=== PATIENT | male | born 1940 | race Caucasian/White ===

== ENCOUNTER 2017-11-19 06:39 | Day surgery (SDC) | payer MEDICARE, BC ==
[~2017-11-19] VITALS: Ht 170.2 cm; Wt 66.5 kg
[~2017-11-19 06:39] MED LIST: AMLO5; ASPI325; ATOR40TA; CEPH500 PO; CHOL10002; CIPR500 PO; CLOP75; CLOT10 SS; Ceftin500 MG PO; GLYB5; INSULANPEN; LISI20; METO25ER; METO5A; Novolog Fl100 UNIT/1; PIOG30; TRAZ50; VENL150ER
== END 2017-11-19 08:55 | disposition home or self-care (01) ==
LOC: ORSCSDS 06:39
PROVIDERS: Ophthalmology
PROC: 08RJ3JZ Replacement of Right Lens with Synthetic Substitute, Percutaneous Approach (ICD-10-PCS; principal; 2017-11-19 08:30)
DX: H25.11 Age-related nuclear cataract, right eye (principal); E11.36 Type 2 diabetes mellitus with diabetic cataract; I35.0 Nonrheumatic aortic (valve) stenosis; I34.0 Nonrheumatic mitral (valve) insufficiency; F43.10 Post-traumatic stress disorder, unspecified; I73.9 Peripheral vascular disease, unspecified; I10 Essential (primary) hypertension; I25.10 Atherosclerotic heart disease of native coronary artery without angina pectoris; Z79.01 Long term (current) use of anticoagulants; Z79.899 Other long term (current) drug therapy
CPT/HCPCS: 82947; J2001; J2250; J3301; J7120; V2632

== ENCOUNTER 2017-12-03 06:53 | Day surgery (SDC) | payer MEDICARE, BC ==
[~2017-12-03] VITALS: Ht 170.2 cm; Wt 66.9 kg
== END 2017-12-03 09:04 | disposition home or self-care (01) ==
LOC: ORSCSDS 06:53
PROVIDERS: Ophthalmology
PROC: 08RK3JZ Replacement of Left Lens with Synthetic Substitute, Percutaneous Approach (ICD-10-PCS; principal; 2017-12-03 08:30)
DX: H25.12 Age-related nuclear cataract, left eye (principal); I10 Essential (primary) hypertension; Z95.0 Presence of cardiac pacemaker; E11.36 Type 2 diabetes mellitus with diabetic cataract; E78.5 Hyperlipidemia, unspecified; F32.9 Major depressive disorder, single episode, unspecified; F43.10 Post-traumatic stress disorder, unspecified; Z79.01 Long term (current) use of anticoagulants; Z79.4 Long term (current) use of insulin; Z79.899 Other long term (current) drug therapy
CPT/HCPCS: 82947; J2001; J2250; J3010; J3301; J7040; V2632

== ENCOUNTER 2018-04-22 07:39 | Day surgery (SDC) | payer MEDICARE, BC ==
[~2018-04-22] VITALS: Ht 170.2 cm; Wt 149.0 kg
[~2018-04-22 07:39] MED LIST changes: +ASPI81CH PO; -CHOL10002; +CHOL10002 PO; +COMPLETE MULTI1 EAC1 PO; +Coq-10100 MG PO; +GABA600 PO; -INSULANPEN; +INSULANPEN SC; +LOSARTAN-HCTZ1 EAC1 PO; +METF500C PO; +METO25ER PO; +TRAZ50 PO; -VENL150ER; +VENL150ER PO
--- NOTE | 2018-04-22 11:35 | NUR ---
PT HAS HAD UNCOMPLICATED RECOVERY COURSE. AWAITING EKG. FAMILY AT BEDSIDE. CBG 146. NO C/O PAIN OR DISCOMFORT.
--- NOTE | 2018-04-22 12:35 | NUR ---
ANCEF 1 GRAM IVPB STARTED PER ORDERS
--- NOTE | 2018-04-22 12:58 | NUR ---
PT RESTING COMFORTABLY IN CHAIR. IV ANTIBX INFUSING PER ORDER. AT CHAIRSIDE AWAITING PT DISCHARGE. PT HAS NO C/O PAIN OR DISCOMFORT. NO BLEEDING NOTED TO INCISION SITE.
--- NOTE | 2018-04-22 13:13 | NUR ---
REVIEWED DISCHARGE INSTRUCTIONS WITH PATIENT AND - BOTH OF WHOM VERBALIZED UNDERSTANDING OF ALL INSTRUCTIONS GIVEN. PT STOOD AT CHAIRSIDE - STEADY ON FEET. DRESSED SELF WITH MINIMAL ASSIST FROM .
--- NOTE | 2018-04-22 13:14 | NUR ---
PT MEDICATED WITH TYLENOL #3 FOR 7/10 LEFT UPPER CHEST INCISION DISCOMFORT. PRESSURE DRESSING REMOVED FROM DEVICE CHANGE OUT. CLEAR TEGADERM INTACT. SITE STABLE. PT GETTING DRESSED AND READY FOR DISPO. AUBREE NOEL RN GOING OVER DISCHARGE PAPERWORK. ANCEF INFUSION COMPLETE.
--- NOTE | 2018-04-22 13:19 | NUR ---
IV D/C TIP INTACT, DRESSING APPLIED. PT AMBULATED OUT OF UNIT, STEADY ON FEET.
== END 2018-04-22 13:20 | disposition home or self-care (01) ==
LOC: MHTC 07:39
DX: Z45.010 Encounter for checking and testing of cardiac pacemaker pulse generator [battery] (principal); I25.10 Atherosclerotic heart disease of native coronary artery without angina pectoris; Z95.1 Presence of aortocoronary bypass graft; Z95.5 Presence of coronary angioplasty implant and graft; E78.5 Hyperlipidemia, unspecified; E11.9 Type 2 diabetes mellitus without complications; I10 Essential (primary) hypertension; Z79.82 Long term (current) use of aspirin; Z79.4 Long term (current) use of insulin; Z79.02 Long term (current) use of antithrombotics/antiplatelets; Z79.899 Other long term (current) drug therapy; Z82.49 Family history of ischemic heart disease and other diseases of the circulatory system
CPT/HCPCS: 33228; 82947; 93005; 93010; 99152; 99153; C1785; J0690; J1644; J2250; J3010; J7030; J7040